=== PATIENT | male | born 1990 ===

== ENCOUNTER 2025-01-05 08:05 | Inpatient (IN) | payer MEDICAID, SELFPAY ==
[2025-01-05 08:09] VITALS: BP 190/117; PULSE 92; RESP 18; TEMP 36.8; O2SAT 97; BMI 30.7
--- NOTE | 2025-01-05 08:25 | ED_ITS ---
HPI - Psych General Chief Complaint: Psychiatric Symptoms Stated Complaint: detox Time Seen by Provider: 01/05/25 08:16 Source: patient Mode of arrival: ambulatory Limitations: no limitations History of Present Illness ED Provider: Shadia Sky NP HPI Narrative: Patient is a 34-year-old male who presents emergency department for evaluation. He is not very forthcoming surrounding his visit today. He answers some questions perfectly clearly with an understandable and appropriate answer, other questions such as in regards to his alcohol or substance use, past medical history, or any symptoms he may be experiencing he just shakes his head [id number] and says I do not know. He states he has not slept in about 3 days, ?I am hearing things? which he can not provide any further detail, reports that he drank a lot in the past , and I need something for my head . When asked whether he has a you suicidal or homicidal ideations he does not provide any answered. When asked whether he has drank today he is not answering, does not answer whether he uses any recreational drugs. Related Data Home Medications ?Medication ?Instructions ?Recorded ?Confirmed No Known Home Meds 01/06/25 01/06/25 Allergies Allergy/AdvReac Type Severity Reaction Status Date / Time No Known Allergies Allergy Verified 01/05/25 08:12 Review of Systems 2 Review of Systems: Yes all other systems are reviewed and are negative PMFSH Past Medical History [facility] Narrative: see HPI, patient not disclosing. Does not provide information for family alternative contact that is may be able to help provide past medical history for him Source: unable to obtain Social History Social History Household Members: Unknown / Unable to assess Housing: Unknown / Unable to assess Unable to assess alcohol history related to: Refusing to respond Patient Tobacco Use Status: Current everyday Tobacco user Tobacco use type: Smokeless Tobacco Smoked in Last 30 Days: Yes e-Cigarette/Vaping Use: Currently Using Frequency of e-Cigarette/Vaping Use: about a pod a day Patient Interested in Nicotine Replacement: Yes Patient Given Instructions on How to Stop Smoking: Yes Date Education Initiated: 01/07/25 Second Hand Smoke Exposure: No Use of substances other than those prescribed or required for medical reasons: Unknown Substance Use Type: Unknown Last Used Substance: Unknown Currently Displaying Signs/Symptoms of Drug Intoxication Withdrawal: No Advance Directives: No Advance Directives Information Provided: No Do you have a plan to hurt others: No Plan Recently lost weight without trying: Unsure Nutrition Risks: No Nutritional Risk Poor oral hygiene: No Physical Exam 2 Vital Signs: Vital Signs: Last Vital Signs Temp 98.6 F 01/07/25 08:30 Pulse 81 01/07/25 12:01 Resp 18 01/07/25 08:30 BP 164/111 H 01/07/25 13:21 Pulse Ox 100 01/07/25 08:30 O2 Del Method Room Air 01/07/25 08:30 BMI result Body Mass Index 30.7 Appearance: Alert.?Oriented to person. No acute distress.?Normal affect. Eyes: Pupils equal, round and reactive to light.? ENT: Pharynx normal.?? Neck: Normal inspection.? Neck supple.?? CVS: Heart sounds normal. Normal heart rate and rhythm.? Pulses normal.?? Respiratory: No respiratory distress.? Lung sounds clear to auscultation bilaterally?? Abdomen: Soft and non-tender. Normoactive bowel sounds. ? Skin: Skin warm and dry.? Normal skin color.? ?? Extremities: No lower extremity edema.? Neuro: Moves all extremities spontaneously. Sensation intact bilaterally. CN II- XII intact. No focal neuro deficits. Ambulates with normal steady gait. Course Reevaluation(s) Reevaluation #1: Serum labs and toxicology testing is unremarkable. Patient remains with somewhat bizarre affect. Still not answering very many questions. There is some degree of concern of recent alcohol usage, his see was down this time is to secondary to headache no other signs of withdrawal at this time. All care team given his endorsement of hearing thing is concerning for possible explanations. Patient will be monitored accordingly for any additional Time: 09:27 Reevaluation #2: Care team was able to evaluate patient has been placed on a section 12 for inpatient bed search. They were able to contact family to provide further uptake, evidently he has been using magic, shortness has been having thoughts killing himself, he is also dealing with paranoia and hallucinations. Evidently he is from the [place] area, here at this time but not homeless. Time: 13:59 Reevaluation #3: 01/06/2025; to continue physician observation, patient is section 12, bed search is underway. Time: 09:33 Additional Reevaluation(s): Time: 06:23 Date: 01/07/25 Provider: Braxton Austin MD Patient in physician observation for psychiatric evaluation.? Patient was been in the emergency department for 46 hours. No acute events reported overnight. Patient slept through the night. Patient was on a Section 12. No current complaints. VS did reveal an elevated blood pressure of 150/91, will continue to monitor his blood pressure.? Patient was re-evaluated by care team and is still in in-patient bed search. Will continue to monitor. Consultations Consultation #1: Time: 12:49 Date: 01/07/25 Provider: Braxton Austin MD Physician observation ended at 12:49 hours. The patient was been accepted as an inpatient on our psychiatric service for further treatment of his psychiatric illness. The patient was had elevated blood pressures since arrival here in the emergency department. Most recent blood pressure was 164/111. Patient told me that he did have high blood pressure and and has been off blood pressure medications for 4 years after he lost a significant amount of weight. He states that his blood pressures are usually normal. The patient denies any recent alcohol or cocaine use. He states that he has been agitated in his not been sleeping for 3-4 days. Patient has no concerning symptoms. Given his markedly elevated blood pressure I believe that the patient has a essential hypertension and I did discuss this with him. The patient told me that he does not want to take blood pressure medications but he is willing to take them while he was here in the hospital. I did have a discussion regarding treatment of hypertension especially the risks of stroke heart attack and kidney failure if he does not continue taking these medications as an outpatient. Patient became agitated by this discussion and did not want to talk about it further. The patient is not in hypertensive crisis or hypertensive urgency therefore he does not need rapid reduction of his blood pressure at this time. He did agree to start lisinopril 10 mg orally. I ordered lisinopril 10 mg orally now and 10 mg daily. Patient will need to continue on lisinopril 10 mg daily at the time of discharge and he will need to follow up with his primary care doctor in 2-4 weeks in order to continue managing his essential hypertension. Time: 18:44 Date: 01/07/25 Provider: Braxton Austin MD Physician observation ended at 13:28 hours. Patient to be admitted as inpatient to psychiatry. Medications Administered Generic Name Dose Route Start Last Admin Trade Name Freq PRN Reason Stop Dose Admin Nicotine Polacrilex 4 mg 01/05/25 20:08 01/07/25 08:11 Nicotine Polacrilex 2 Mg Gum BUCCAL 4 mg QID PRN Administration Nicotine Cravings Olanzapine 5 mg 01/07/25 12:10 01/07/25 14:31 Olanzapine 5 Mg Tablet PO 5 mg Q4H PRN Administration psychosis Discontinued Medications Generic Name Dose Route Start Last Admin Trade Name Freq PRN Reason Stop Dose Admin Ibuprofen 600 mg 01/05/25 08:37 01/05/25 09:28 Ibuprofen 600 Mg Tablet PO 01/05/25 08:38 600 mg ONCE ONE Administration Lisinopril 10 mg 01/07/25 12:56 01/07/25 13:21 Lisinopril 10 Mg Tablet PO 01/07/25 12:57 10 mg ONCE STA Administration Protocol Lorazepam 2 mg 01/05/25 20:08 01/05/25 20:14 Lorazepam 1 Mg Tablet PO 01/05/25 20:09 2 mg ONCE ONE Administration Lorazepam 2 mg 01/06/25 03:18 01/06/25 03:25 Lorazepam 1 Mg Tablet PO 01/06/25 03:19 2 mg ONCE ONE Administration Nicotine 21 mg 01/07/25 07:58 01/07/25 08:12 Nicotine 21 Mg Patch.Td24 TRANSDERMA 01/07/25 07:59 21 mg ONCE ONE Administration Olanzapine 10 mg 01/06/25 17:48 01/06/25 17:54 Olanzapine 10 Mg Tablet PO 01/06/25 17:49 10 mg ONCE ONE Administration Medical Decision Making Medical Decision Making [facility] Narrative: Patient is a 34-year-old male with unknown past medical history presenting to emergency department reporting ?hearing things? and not sleeping over the past 3 days. Seems there may be a component of alcohol use associated with these symptoms but again the history is unclear as per HPI he is not very forthcoming about any of his history nor why he has not been sleeping symptoms that he may be experiencing. He is calm otherwise cooperative with foreign exchange dealer, has provided a urinalysis thus far. Will obtain CBC to evaluate for leukocytosis/ anemia, CMP and lipase to evaluate for abnormal electrolytes /abnormal renal function/ abnormal hepatic/biliary function, TAMAYO and ethanol. Differential Diagnosis Differential Diagnoses: The differential diagnosis associated with the presentation includes (Substance use disorder, insomnia, auditory hallucinations, schizophrenia) Admission/Observation Consideration of admission/observation: Escalation of care including admission/observation considered Consult Healthcare Provider Management of the patient was discussed with: Behavioral Health Provider Lab Data MDM Lab Attestation statement: I reviewed the patient's lab results. CBC is without leukocytosis anemia or thrombocytopenia. No electrolyte derangement. No ISELA. Normal LFTs. Toxicology is negative. Ethyl alcohol level nondetectable 01/05/25 08:47 01/05/25 08:47 Labs: Lab Results 01/05/25 01/05/25 Range/Units 08:44 08:47 WBC 9.4 (4.8-10.8) X10*3/uL RBC 4.95 (4.60-5.80) X10*6/uL Hgb 14.6 (14.0-18.0) g/dl Hct 42.7 (42.0-52.0) % MCV 86.3 (80.0-98.0) fL MCH 29.5 (27.0-33.0) pg MCHC 34.2 (31.0-36.0) g/dl RDW 11.7 (11.0-16.0) % Plt Count 289 (160-400) X10*3/uL MPV 9.8 (9.4-12.4) fL Immature Gran % (Auto) 0.4 (0.0-0.4) % Neut % (Auto) 50.3 (45-73) % Lymph % (Auto) 39.2 (20-40) % [place] % (Auto) 8.4 (2-11) % Eos % (Auto) 1.2 (0-4) % Baso % (Auto) 0.5 (0-2) % Lymph # (Auto) 3.7 (1.2-4.9) X10*3/uL [place] # (Auto) 0.8 (0.1-1.2) X10*3/uL Eos # (Auto) 0.1 (0.0-0.4) X10*3/uL Baso # (Auto) 0.1 (0.0-0.2) X10*3/uL Abs Immat Gran (auto) 0.04 H (0.00-0.03) X10*3/uL Absolute Neuts (auto) 4.8 (2.0-8.3) x10*3/uL Absolute Nucleated RBC 0.000 (0.0-0.012) X10*3/uL Nucleated RBC % (auto) 0.0 (0.0-0.2) /100WBC Sodium 137 (135-145) mmol/L Potassium 3.4 (3.3-5.1) mmol/L Chloride 102 (96-108) mmol/L Carbon Dioxide 25 (22-29) mmol/L Anion Gap 13 (12-20) BUN 11 (9-16) mg/dL Creatinine 0.75 (0.5-1.4) mg/dL Estim Creat Clear Calc 158.8 Estimated GFR > 60 Random Glucose 98 (60-115) mg/dL Calcium 9.1 (8.4-10.2) mg/dL Magnesium 2.3 (1.6-2.6) mg/dL Total Bilirubin 0.6 (0.0-1.0) mg/dL Direct Bilirubin 0.2 (0.0-0.5) mg/dL AST 19 (5-37) U/L ALT 29 (0-40) U/L Alkaline Phosphatase 44 (39-117) U/L Total Protein 7.1 (6.5-8.0) g/dL Albumin 4.8 (3.5-5.0) g/dL Urine Color Yellow Urine Appearance Cloudy Urine pH >= 9.0 (5.0-9.0) Ur Specific [place] 1.010 (1.005-1.025) Urine Protein Negative (Neg-Trace) mg/dL Urine Glucose (UA) Negative (Negative) mg/dL Urine Ketones 15 (Negative) mg/dL Urine Blood Negative (Negative) Urine Nitrite Negative (Negative) Ur Leukocyte Esterase Negative (Negative) Salicylates < 5.0 L (15-30) mg/dL Urine Opiates Screen Not Detected (Not Detect) Ur Buprenorphine Scrn Not Detected (Not Detect) ng/mL Ur Oxycodone Screen Not Detected (Not Detect) ng/mL Urine Methadone Screen Not Detected (Not Detect) ng/mL Urine Fentanyl Screen Not Detected (Not Detect) Acetaminophen < 3 (<30) mcg/mL Ur Barbiturates Screen Not Detected (Not Detect) Ur Phencyclidine Scrn Not Detected (Not Detect) Ur Amphetamines Screen Not Detected (Not Detect) U Benzodiazepines Scrn Not Detected (Not Detect) Urine Cocaine Screen Not Detected (Not Detect) U Marijuana (THC) Screen Not Detected (Not Detect) Ethyl Alcohol < 10 mg/dL Discharge Plan Discharge Clinical Impression: Paranoid ideation, Mood disorder, Insomnia Patient Disposition: Admitted As Inpatient Interventions: Admission Worksheet (ED) Last Done: 01/07/25 13:31 Discharge Date/Time: 01/07/25 13:33
[2025-01-05 08:50] VITALS: BP 166/115; PULSE 86; RESP 20; TEMP 36.7; O2SAT 94
[2025-01-05 08:52] LABS: MANUAL DIFF FLAG NO
--- NOTE | 2025-01-05 08:53 | PC.NURSE ---
Pt comes in for ?ETOH/?substance use. Pt a/ox3, refusing to respond to questions, slow to speak with staff, agitated/frustrated easily. Per pt last drink 11 days ago- unknown if daily drinker/type of drink d/t pt not responding to questions. Denies ETOH withdrawal seizures, but had withdrawals before. Denies SI/HI- stated to this RN he is not experiencing auditory/visual hallucinations, pt told solder deposit operator he was experiencing AH- does not seem to be responding to internal stimuli. Pt changed over by RN and pharmacy technologist Gilberto d/t increasing agitation/frustration and possible danger to self/staff- belongings placed in jordon port shelf 2. A/ox3, respirations even and unlabored, no increased wob/sob noted, maintaining O2 sat >92%, placed on monitoring coordinator, NSR HR- 80s, appears in no distress. Vitals updated in worklist, BP 160s/100s- pt denies having high BP/taking BP medications, HOT CAR CHARGER Miah aware of BP. Pt in agreement with labs/urine sample- this RN explained the process of getting medically cleared then seeing CARE team or recovery. Pt ignoring staff questions/showing increased agitation with questions being asked. CIWA scored 0- appears in no distress, HR nsr, skin pwd- not diaphoretic, denies auditory/visual sensory disturbances. Call das within reach, all needs met at this time.
[2025-01-05 08:55] LABS: Basophils Absolute Auto 0.1 X10*3/uL (0.0-0.2); Basophils Percent Auto 0.5 % (0-2); Eosinophils Absolute Auto 0.1 X10*3/uL (0.0-0.4); Eosinophils Percent Auto 1.2 % (0-4); Hematocrit 42.7 % (42.0-52.0); Hemoglobin 14.6 g/dl (14.0-18.0); Imm Gran Abs Auto 0.04 X10*3/uL (0.00-0.03); Imm Gran Pct Auto 0.4 % (0.0-0.4); Lymphocytes Absolute Auto 3.7 X10*3/uL (1.2-4.9); Lymphocytes Percent Auto 39.2 % (20-40); Mean Corpuscular HGB Conc 34.2 g/dl (31.0-36.0); Mean Corpuscular Hemoglobin 29.5 pg (27.0-33.0); Mean Corpuscular Volume 86.3 fL (80.0-98.0); Mean Platelet Volume 9.8 fL (9.4-12.4); Monocytes Absolute Auto 0.8 X10*3/uL (0.1-1.2); Monocytes Percent Auto 8.4 % (2-11); Neutrophils Absolute Auto 4.8 x10*3/uL (2.0-8.3); Neutrophils Percent Auto 50.3 % (45-73); Platelet Count 289 X10*3/uL (160-400); Red Blood Count 4.95 X10*6/uL (4.60-5.80); Red Cell Distribution Width 11.7 % (11.0-16.0); White Blood Count 9.4 X10*3/uL (4.8-10.8)
[2025-01-05 09:06] LABS: Appearance Urine Cloudy; Color Urine Yellow; Glucose Urine UA Negative (Negative); Leukocyte Esterase Urine Negative (Negative); Nitrite Urine Negative (Negative); PH >= 9.0 (5.0-9.0); Urine Blood Negative (Negative); Urine Ketones 15 mg/dL (Negative); Urine Protein Negative (Neg-Trace)
[2025-01-05 09:08] LABS: Amphetamine Screen Urine Not Detected (Not Detect); Barbiturates, Urine Not Detected (Not Detect); Benzodiazepines Screen Urine Not Detected (Not Detect); Buprenorphine Scr Not Detected (Not Detect); Cannabinoid Screen Urine Not Detected (Not Detect); Cocaine Screen Urine Not Detected (Not Detect); Fentanyl, urine Not Detected (Not Detect); Methadone Screen, Urine Not Detected (Not Detect); Opiate Screen Urine Not Detected (Not Detect); Oxycodone Screen Urine Not Detected (Not Detect); Phencyclidine Screen Urine Not Detected (Not Detect)
[2025-01-05 09:16] LABS: Alanine Aminotransferase 29 U/L (0-40); Albumin Level 4.8 g/dL (3.5-5.0); Alkaline Phosphatase 44 U/L (39-117); Anion Gap 13 (12-20); Aspartate Amino Transferase 19 U/L (5-37); Bilirubin Direct 0.2 mg/dL (0.0-0.5); Bilirubin Total 0.6 mg/dL (0.0-1.0); Blood Urea Nitrogen 11 mg/dL (9-16); Calcium 9.1 mg/dL (8.4-10.2); Carbon Dioxide 25 mmol/L (22-29); Chloride 102 mmol/L (96-108); Creatinine Clr Calc Pharmacy 158.8; Estimated Glomerular Filt Rate > 60; Glucose Random 98 mg/dL (60-115); Magnesium 2.3 mg/dL (1.6-2.6); Potassium 3.4 mmol/L (3.3-5.1); Sodium 137 mmol/L (135-145); Total Protein 7.1 g/dL (6.5-8.0)
[2025-01-05 09:21] LABS: Acetaminophen LAB < 3 mcg/mL (<30); Ethanol < 10 mg/dL; Salicylate < 5.0 mg/dL (15-30)
[2025-01-05] MEDS: Ibuprofen 600 MG TABLET PO (09:28)
--- NOTE | 2025-01-05 10:59 | PC.NURSE ---
Care Team at the bedside to provide a consult.
[2025-01-05 11:18] VITALS: BP 156/93; PULSE 88; RESP 14; O2SAT 97
--- NOTE | 2025-01-05 11:48 | PC.NURSE ---
Patient wandering down the jara. Public safety aware. Per care team, requesting psychiatrist to evaluate as patient is unable to communicate his needs at this time. Patient transferred to the pod for decreae stimulation and a quieter environment. Report given.
--- NOTE | 2025-01-05 13:11 | PC.NURSE ---
Pt resting in room; faces away from staff speaking to him; refuses to answer questions, stating he just wants to sleep and be left alone
--- NOTE | 2025-01-05 14:17 | PC.NURSE ---
Pt's mother called to update pt information, i.e. address, phone number, etc; pt still remains uninvolved in care, refusing to speak with anyone; pt did eat lunch, but is otherwise not able to participate in his care at this time
--- NOTE | 2025-01-05 14:36 | PC.NURSE ---
Pt does not participate in the CIWA assessment..unable to properly evaluate CIWA level
[2025-01-05 20:11] VITALS: BP 180/96; PULSE 81; RESP 18; TEMP 36.9; O2SAT 98
[2025-01-05] MEDS: LORazepam 1 MG TABLET 2 MG PO (20:14)
[2025-01-05] MEDS: Nicotine Polacrilex 2 MG GUM 4 MG BUCCAL (20:16)
--- NOTE | 2025-01-06 00:31 | PC.NURSE ---
patient appears to remain at rest presently was cooperative with receiving ativan earlier and nicotine gum, patient allowed to rest.
[2025-01-06] MEDS: Nicotine Polacrilex 2 MG GUM 4 MG BUCCAL ×3 (02:38→08:06)
[2025-01-06] MEDS: LORazepam 1 MG TABLET 2 MG PO (03:25)
--- NOTE | 2025-01-06 08:07 | PC.NURSE ---
Pt has been pacing since this RN arrival. Security reviewed cameras and states that patient was up all night. Pt requesting nicorette gum but declining offer for anything to help calm him or help him to sleep. Is not agitated or agressive at this time.
[2025-01-06 08:37] VITALS: PULSE 100; RESP 18; TEMP 37.1; O2SAT 97
--- NOTE | 2025-01-06 08:47 | PHA.MEDREC ---
Pharmacy Consult ? Medication Reconciliation Pharmacy has completed the medication reconciliation. Patient confirmed he takes nothing at home.
--- NOTE | 2025-01-06 09:19 | MHC.CARE ---
Ptr will be be an inpatient bedsearch.
--- NOTE | 2025-01-06 10:17 | PC.NURSE ---
update with Mom, Laura, on phone.
--- NOTE | 2025-01-06 10:20 | PC.NURSE ---
Pt resting in bed.
--- NOTE | 2025-01-06 10:33 | PC.NURSE ---
Sharifa on phone and stating that they will attempt to get psychiatry to consult on meds as patient is waiting for placement.
--- NOTE | 2025-01-06 10:34 | PC.NURSE ---
columbia scale completed but software makes it impossible to chart accurately. Pt is unable to hold conversation regarding SI.
[2025-01-06 15:34] VITALS: BP 150/91; PULSE 84; RESP 18; TEMP 36.4; O2SAT 99
[2025-01-06] MEDS: OLANZapine 10 MG TABLET PO (17:54)
--- NOTE | 2025-01-07 | ECG_ITS ---
Test Reason : cropana Blood Pressure : */* mmHG Vent. Rate : 95 BPM Atrial Rate : 95 BPM P-R Int : 110 ms QRS Dur : 104 ms QT Int : 342 ms P-R-T Axes : 20 36 29 degrees QTcB Int : 429 ms Sinus rhythm with short [place] Otherwise normal ECG No previous ECGs available Referred By: Braxton Austin Electronically Signed By: Nicanor Capellan
[2025-01-07] MEDS: Nicotine Polacrilex 2 MG GUM 4 MG BUCCAL ×2 (02:24→08:11)
[2025-01-07 06:10] VITALS: RESP 16
--- NOTE | 2025-01-07 06:14 | PC.NURSE ---
Patient slept through the night, no distress observed/reported, 15 minutes safety check, no behavior and safety concerns, patient is currently not on any home medication, disposition per care team is section-12 inpatient bed search, will continue to monitor
--- NOTE | 2025-01-07 07:16 | PC.NURSE ---
Assumed pt care at 0645. Pt appears to be asleep. Respirations even and unlabored. Continue plan of care for inpatient bed search.
[2025-01-07] MEDS: Nicotine 21 MG PATCH.TD24 TRANSDERMA (08:12)
[2025-01-07 08:30] VITALS: BP 157/110; PULSE 99; RESP 18; TEMP 37; O2SAT 100
[2025-01-07 12:01] VITALS: BP 164/111; PULSE 81
--- NOTE | 2025-01-07 12:03 | PC.NURSE ---
Pt has elevated BP. Indu Rodriguezo. No new orders at this time
[2025-01-07 13:21] VITALS: BP 164/111
[2025-01-07] MEDS: lisinopriL 10 MG TABLET PO (13:21)
[2025-01-07] MEDS: OLANZapine 5 MG TABLET PO (14:31)
--- NOTE | 2025-01-07 17:33 | PC.ADMIT ---
Bob Anthony is a 34 year old male admitted to M5 from [facility]. Bob arrived to the unit at @13:30, skin check was unremarkable. Bob is alert and oriented x4, speech is clear but slightly delayed in responding to questions. Bob was initially cooperative with vitals and preliminary admission information but soon became agitated and irritable with admission questions.His main concern was the [place] rental car that he reportedly drove to the ED and how it would be returned. Bob denied substance use other than vaping nicotine daily and tox screen was negative however family reports differently regarding substance use. 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 After sharing this information, he became to agitated to continue with assessment questions. Per Assessment Bob self presented to [facility] with complaints of persistent internal chatter or voices, which he was unable to clearly describe. Initially, he reported being homeless and residing in [place]. However, further investigation revealed a previous residence in [place], [place]. A call to the [place] [employer] prompted a well-being check, resulting in contact with the patient?s family. His family subsequently reached out to the care team and provided pertinent information regarding both his current mental state and psychiatric history. Family noted that he was? currently expressing thoughts of self-harm, raising significant concerns for his safety and mental stability. Per family precipitating factors include the end of a significant romantic relationship triggering increased emotional distress, leading to a noticeable escalation in alcohol use as a coping mechanism. Concurrently, his unregulated use of magic mushrooms (which he denied during admission) has exacerbated symptoms of paranoia and perceptual disturbances, further impairing his reality testing and emotional regulation. Three days of sleep deprivation has likely intensified his psychiatric symptoms.? Per his mother, Bob has been demonstrating ongoing paranoia and hallucinations. He believes that others are out to kill him or telling him to kill himself, he also believes that he is on a no fly list per the government. These acute stressors, layered on top of longstanding vulnerabilities such as low self-esteem, past trauma from childhood bullying, and a history of suicidality have contributed to his current mental health crisis. Bob was given a brief tour of the unit, placed on 5 minute checks out of concern for his level of agitation at the time and being unfamiliar with him. He was offered and accepted zyprexa and nicotine gum, showered, signed a CV and fell asleep. Bob was switched back to 15 minute checks at 17:00.?Bob refused to sign releases or take part in formation of safety tool or treatment plan. Per report of POD RN, his parents are driving up from [place] to assist him.
[2025-01-07 20:00] VITALS: BP 120/73; PULSE 87; RESP 16; TEMP 36.6; O2SAT 99
[2025-01-07] MEDS: OLANZapine 10 MG TABLET PO (21:13)
[2025-01-08 07:57] VITALS: BP 146/89; PULSE 82; RESP 18; TEMP 36.5; O2SAT 100
[2025-01-08] MEDS: Multivitamin TABLET 1 TAB PO (08:29)
[2025-01-08] MEDS: Folic Acid 1 MG TABLET PO (08:29)
[2025-01-08] MEDS: lisinopriL 10 MG TABLET PO (08:30)
[2025-01-08] MEDS: Thiamine HCL 100 MG TABLET PO (08:30)
[2025-01-08] MEDS: OLANZapine 10 MG TABLET PO (08:30)
[2025-01-08 09:04] LABS: Estimated Average Glucose 103 mg/dL; Hemoglobin A1C 134.0523 umol/L; Hemoglobin A1c % 5.2 % (<6.0); Total Hemoglobin (HGBA1C) 4054.3582 umol/L
[2025-01-08] MEDS: Nicotine Polacrilex 2 MG GUM 4 MG BUCCAL ×2 (09:08→20:31)
[2025-01-08 09:09] LABS: Cholesterol 263 mg/dL (<200); HDL Cholesterol 40 mg/dL (>40); LDL Cholesterol Calculated 199 mg/dL (<100); Magnesium 2.2 mg/dL (1.6-2.6); Triglycerides 123 mg/dL (<150)
[2025-01-08 09:26] LABS: Free T4 (Free Thyroxine) 1.21 ng/dL (0.71-1.85)
--- NOTE | 2025-01-08 09:29 | P.HPPS_ITS ---
HPI Date of Service: 01/08/25 Chief Complaint: PTSD; psychosis, alcohol use disorder Sources of Information: patient interviewed, chart reviewed and crisis/core team assessment reviewed Additional Sources of Information: Seen 1120am; 120pm-fearful, paranoid, did his best to participate Parents are on their way from [place] to support pt. HPI Subjective Notes: Lemus Warning and Conditional Voluntary Healthcare Proxy: No Guardianship: No Medical Problems Affecting Mental Status: No Narrative: 34 yo male, employed as a [employer], who self presented to the ER telling team of persistent internal voices. Pt lives in [place], [place] with parents. He had been working in [place], was set to drive to [place] to fly home to [place], but drove around and ended up in the ER, telling team he was homeless and had told family he was having thoughts of hurting himself. Family reports precipitants as the ending of a relationship, increase in alcohol use, use of psilocybin which have increased sx of paranoia and perceptual alterations, sleep deprivation, impaired reality testing, poor modulation of affect. Pt tells team he is experiencing paranoia, perceptual alterations, feeling people are out to kill him, voices to kill himself, being told he is on a no fly list with the [employer]. Pt is difficult to engage today. We met briefly twice. He is aware that parents are on their way from [place] to support him. He is accepting medication, yet is appearing frightened and paranoid. He is able to accept reassurance that the team is here to help him remain safe. Past Psychiatric History: IP: S/P OD in his 20's OP: No current alliances Meds: Denies SA via OD in his 20's. Medical Evaluation Reviewed: Yes [facility] Family History: pt did not answer Social History: Loss of father when he was 9 months old. Two siblings Lives with mother and step father in [place] Substance History: psilocybin use, hx of OD a few months ago Trauma History: affirms-childhood and adult Diagnostics Vital Signs (24Hr): Vital Signs - 24 hr 01/07/25 12:01 01/07/25 13:21 01/07/25 20:00 Temperature 97.8 F Pulse Rate 81 87 Respiratory Rate 16 Blood Pressure 164/111 H 164/111 H 120/73 Pulse Oximetry 99 Oxygen Delivery Method Room Air 01/08/25 07:57 Temperature 97.7 F Pulse Rate 82 Respiratory Rate 18 Blood Pressure 146/89 H Pulse Oximetry 100 Oxygen Delivery Method Room Air BMI result Body Mass Index 30.7 Labs 01/05/25 08:47 01/05/25 08:47 Labs: Laboratory Results - last 48 hr 01/08/25 08:29 Estimat Average Glucose 103 Hemoglobin A1c % 5.2 Magnesium 2.2 Triglycerides 123 Cholesterol 263 H LDL Cholesterol, Calc 199 H HDL Cholesterol 40 L TSH 0.50 Free T4 1.21 EKG EKG Comment: QTc 429. Meds/Allergies Meds Home Medications ?Medication ?Instructions ?Recorded ?Confirmed ?Type No Known Home Meds 01/06/25 01/06/25 History Allergies Allergies Allergy/AdvReac Type Severity Reaction Status Date / Time No Known Allergies Allergy Verified 01/05/25 08:12 Mental Status Exam Mental Status Exam Patient Appearance: Fatigued and Disheveled Patient Orientation: Person and Place Level of Consciousness: Sedated and Alert Patient Behavior: Guarded, Talkative, Passive, Suspicious, Anxious, Sedated, Fearful, Avoidant, Fatigued, Distractible, Isolative and Good Eye Contact Mood Description: Fearful and Anxious Affect Description: Fearful and Anxious Patient Cognition Impaired: Yes Ability to Follow Directions: Fair Speech Pattern: Impoverished, Spontaneous Speech, Soft-Spoken, Delayed and Long Pauses Memory Description: Remote Impaired Hallucinations: Auditory (appears to have response to internal stimuli) Delusions: Paranoid Ideation and Present Perceptual Disturbances: Depersonalization and Derealization Thought Process: Distracted and Rumination Thought Content: positive for Circumstantial, positive for Perseveration and positive for Suicidal Ideation (denies) Depressive Symptoms: Increased Anxiety, Insomnia, Difficulty Sleeping, Loss of Int. in Activity, Increased Fatigue, Thoughts of /Suicide, Loss of Energy and Difficulty Concentrating Judgement: Poor Assessment & Plan Assessment & Plan (1) Psychoactive substance-induced mood disorder: Status: Acute Code(s): F19.94 - Other psychoactive substance use, unspecified with psychoactive substance-induced mood disorder (2) Psychosis: Status: Acute Code(s): F29 - Unspecified psychosis not due to a substance or known physiological condition Plan Admit, CV, 15 minute checks Diagnostics as needed Collateral Contacts Encourage milieu when pt is cleared CIWA/Lorazepam detox/Vitamin replacement Increase Olanzapine from 10 mg bid to 15 mg bid Continue prn Olanzapine Patient educated on: medication risk/benefits, substance abuse, therapeutic strategies and medical condition Reason for continued inpatient stay Substantial Risk for: rapid decompensation Statement Statement: I have reviewed the history and physical and performed a pertinent examination on my patient. No changes have occurred unless specified. If the History and Physical was not performed prior to admission, the Hospitalist's service will be consulted for completing the admission physical. Time Spent With Patient Time: Total time managing care of this patient today ____ minutes.
[2025-01-08 09:39] LABS: Folate 14.9 ng/mL (> or = 4.0); Vitamin B12 1272 pg/mL (200-900)
[2025-01-08 20:00] VITALS: BP 109/59; PULSE 89; TEMP 36.4; O2SAT 98
[2025-01-08] MEDS: OLANZapine 7.5 MG TABLET 15 MG PO (21:38)
[2025-01-09] MEDS: Nicotine Polacrilex 2 MG GUM 4 MG BUCCAL ×3 (07:04→13:47)
[2025-01-09 08:00] VITALS: BP 131/83; PULSE 85; RESP 18; TEMP 36.7; O2SAT 99
[2025-01-09] MEDS: Thiamine HCL 100 MG TABLET PO (08:13)
[2025-01-09] MEDS: Folic Acid 1 MG TABLET PO (08:13)
[2025-01-09] MEDS: lisinopriL 10 MG TABLET PO (08:13)
[2025-01-09] MEDS: OLANZapine 7.5 MG TABLET 15 MG PO ×2 (08:14→20:02)
[2025-01-09] MEDS: Multivitamin TABLET 1 TAB PO (08:14)
--- NOTE | 2025-01-09 10:03 | P.PNPSI_ITS ---
Subjective Subjective Date of Service: 01/09/25 Reason For Visit: PTSD; psychosis, alcohol use disorder Subjective Notes: Conditional Voluntary and 3 Day Healthcare Proxy: No Guardianship: No Medical Problems Affecting Mental Status: No Interim History: Parents arrived from [place]. Met with team, pt, parents. Talked with mother Laura via phone [phone]. Pt reviewed his plans to stop substances and pursue treatment once he returns home. By hx, pt was sober for one year post rehab-he adds that he felt his ex- girlfriends helped to keep him on track. Pt reviewed sx and substance use [employer]- alcohol 12/24, mushrooms Aug 2024-voices that were accusatory, telling him to harm himself in the grocery store. Pt reports feeling ready to leave, stating he came here, got what he needed and is ready to move. Discussed what he needs to do, in pt care making it worse for him. He reports confidence in himself and his capabilities. Believes he cannot drink any longer, will cope by regular gym workouts and connections with friends. AA not a support for him-hearing others experience causes anxiety and cannot talk about the horrors of life . Will initiate antidepressant and send a 30 day supply with pt via [facility] pharmacy Medication Compliance: Yes Side effects from medications: No Attending Groups: No Review of Systems Acute medical concerns: No Medical Review of Systems: unchanged Review of Systems Review of Systems Denies Mental Status Exam Mental Status Exam Patient Appearance: Appropriate Patient Orientation: Person, Place, Time and Situation Level of Consciousness: Alert Patient Behavior: Talkative and Good Eye Contact Mood Description: Appropriate and Hostile Affect Description: Appropriate Patient Cognition Impaired: No Ability to Follow Directions: Good Speech Pattern: Spontaneous Speech Memory Description: Episodic Impaired Hallucinations: Auditory (mild at times) Delusions: Not Present Thought Process: Goal Oriented Thought Content: positive for Goal Oriented Judgement: Good Diagnostics Vital Signs (24Hr): Vital Signs - 24 hr 01/08/25 20:00 01/09/25 08:00 Temperature 97.5 F 98.1 F Pulse Rate 89 85 Respiratory Rate 18 Blood Pressure 109/59 L 131/83 Pulse Oximetry 98 99 Oxygen Delivery Method Room Air Room Air BMI result Body Mass Index 30.7 Labs 01/05/25 08:47 01/05/25 08:47 Labs: Laboratory Results - last 48 hr 01/08/25 08:29 Estimat Average Glucose 103 Hemoglobin A1c % 5.2 Magnesium 2.2 Triglycerides 123 Cholesterol 263 H LDL Cholesterol, Calc 199 H HDL Cholesterol 40 L Vitamin B12 1272 H Folate 14.9 TSH 0.50 Free T4 1.21 Medications Medications Current Medications Acetaminophen (Acetaminophen 325 Mg Tablet) 650 mg PO Q6H PRN PRN Reason: Headache/Pain, Scale 1-10 Al Hydroxide/Mg Hydroxide (Magnesium Hydrox/Alum Hydrox 30 Ml Oral.Susp) 30 ml PO Q6H PRN PRN Reason: Heartburn/Nausea Folic Acid (Folic Acid 1 Mg Tablet) 1 mg PO DAILY [facility] Last Admin: 01/09/25 08:13 Dose: 1 mg Hydroxyzine HCl (Hydroxyzine Hcl 25 Mg Tablet) 25 mg PO Q6H PRN PRN Reason: mild anxiety Lisinopril (Lisinopril 10 Mg Tablet) 10 mg PO DAILY [facility]; Protocol Last Admin: 01/09/25 08:13 Dose: 10 mg Lorazepam (Lorazepam 1 Mg Tablet) 1 mg PO Q2H PRN PRN Reason: ciwa 6-10 Lorazepam (Lorazepam 1 Mg Tablet) 2 mg PO Q2H PRN PRN Reason: ciwa 11+ Magnesium Hydroxide (Milk Of Magnesia 30 Ml Oral.Susp) 30 ml PO DAILY PRN PRN Reason: Constipation Multivitamins/Vitamin C (Multivitamin Tablet) 1 tab PO DAILY [facility] Last Admin: 01/09/25 08:14 Dose: 1 tab Nicotine Polacrilex (Nicotine Polacrilex 2 Mg Gum) 4 mg BUCCAL Q2H PRN PRN Reason: Nicotine Cravings Last Admin: 01/09/25 07:04 Dose: 4 mg Olanzapine (Olanzapine 5 Mg Tablet) 5 mg PO Q4H PRN PRN Reason: psychosis Last Admin: 01/07/25 14:31 Dose: 5 mg Olanzapine (Olanzapine 7.5 Mg Tablet) 15 mg PO BID [facility] Last Admin: 01/09/25 08:14 Dose: 15 mg Thiamine HCl (Thiamine Hcl 100 Mg Tablet) 100 mg PO DAILY [facility] Last Admin: 01/09/25 08:13 Dose: 100 mg Trazodone HCl (Trazodone Hcl 50 Mg Tablet) 50 mg PO BEDTIME MRX1 PRN PRN Reason: Insomnia Allergies Allergies Allergy/AdvReac Type Severity Reaction Status Date / Time No Known Allergies Allergy Verified 01/05/25 08:12 Assessment & Plan Assessment & Plan (1) Psychoactive substance-induced mood disorder: Status: Acute Code(s): F19.94 - Other psychoactive substance use, unspecified with psychoactive substance-induced mood disorder (2) Psychosis: Status: Acute Code(s): F29 - Unspecified psychosis not due to a substance or known physiological condition Plan Admit, CV, 15 minute checks Diagnostics as needed Collateral Contacts Encourage milieu when pt is cleared CIWA/Lorazepam detox/Vitamin replacement Increase Olanzapine from 10 mg bid to 15 mg bid Continue prn Olanzapine 01/09- Sertraline 25 mg a.m. Discharge with parents 01/10. Pt to return to his home with parents in [place] Reason for continued inpatient stay Substantial Risk for: rapid decompensation Time Spent With Patient Time: Total time managing care of this patient today ____ minutes.
[2025-01-09] MEDS: hydrOXYzine HCL 25 MG TABLET PO (13:48)
[2025-01-09 19:20] VITALS: BP 158/90; PULSE 89; TEMP 36.4; O2SAT 99
[2025-01-09] MEDS: traZODone HCL 50 MG TABLET PO (20:02)
[2025-01-10] MEDS: Nicotine Polacrilex 2 MG GUM 4 MG BUCCAL (06:25)
[2025-01-10 08:00] VITALS: BP 131/81; PULSE 86; RESP 16; TEMP 36.8; O2SAT 99
[2025-01-10] MEDS: Multivitamin TABLET 1 TAB PO (08:08)
[2025-01-10] MEDS: lisinopriL 10 MG TABLET PO (08:08)
[2025-01-10] MEDS: OLANZapine 7.5 MG TABLET 15 MG PO (08:08)
[2025-01-10] MEDS: Thiamine HCL 100 MG TABLET PO (08:08)
[2025-01-10] MEDS: Folic Acid 1 MG TABLET PO (08:08)
[2025-01-10] MEDS: Sertraline HCL 25 MG TABLET PO (08:08)
--- NOTE | 2025-01-10 10:20 | P.DS_ITS ---
DS: Providers Provider Date of admission: 01/07/25 12:07 Primary care physician: None Physician DS: Diagnosis Discharge Diagnosis (1) Psychoactive substance-induced mood disorder: Status: Acute (2) Psychosis: Status: Acute DS: Medications Discharge Medications Home Medications: Previous Rx's ?Medication ?Instructions ?Recorded folic acid 1 mg tablet 1 mg PO DAILY #0 tabs 01/09/25 multivitamin (Daily-Say tablet) 1 tab PO DAILY #0 tabs 01/09/25 olanzapine 15 mg tablet (Zyprexa) 15 mg PO BID #60 tabs 01/09/25 sertraline 25 mg tablet 25 mg PO DAILY #30 tabs 01/09/25 thiamine mononitrate (vit B1) 100 100 mg PO DAILY #0 tabs 01/09/25 mg tablet Data Data Completed and Pending Completed studies during hospitalization [Text1]: 01/05/25 01/05/25 01/08/25 08:44 08:47 08:29 WBC 9.4 RBC 4.95 Hgb 14.6 Hct 42.7 MCV 86.3 MCH 29.5 MCHC 34.2 RDW 11.7 Plt Count 289 MPV 9.8 Immature Gran % (Auto) 0.4 Neut % (Auto) 50.3 Lymph % (Auto) 39.2 [place] % (Auto) 8.4 Eos % (Auto) 1.2 Baso % (Auto) 0.5 Lymph # (Auto) 3.7 [place] # (Auto) 0.8 Eos # (Auto) 0.1 Baso # (Auto) 0.1 Abs Immat Gran (auto) 0.04 H Absolute Neuts (auto) 4.8 Absolute Nucleated RBC 0.000 Nucleated RBC % (auto) 0.0 Sodium 137 Potassium 3.4 Chloride 102 Carbon Dioxide 25 Anion Gap 13 BUN 11 Creatinine 0.75 Estim Creat Clear Calc 158.8 Estimated GFR > 60 Random Glucose 98 Estimat Average Glucose 103 Hemoglobin A1c % 5.2 Calcium 9.1 Magnesium 2.3 2.2 Total Bilirubin 0.6 Direct Bilirubin 0.2 AST 19 ALT 29 Alkaline Phosphatase 44 Total Protein 7.1 Albumin 4.8 Triglycerides 123 Cholesterol 263 H LDL Cholesterol, Calc 199 H HDL Cholesterol 40 L Vitamin B12 1272 H Folate 14.9 TSH 0.50 Free T4 1.21 Urine Color Yellow Urine Appearance Cloudy Urine pH >= 9.0 Ur Specific [place] 1.010 Urine Protein Negative Urine Glucose (UA) Negative Urine Ketones 15 Urine Blood Negative Urine Nitrite Negative Ur Leukocyte Esterase Negative Salicylates < 5.0 L Urine Opiates Screen Not Detected Ur Buprenorphine Scrn Not Detected Ur Oxycodone Screen Not Detected Urine Methadone Screen Not Detected Urine Fentanyl Screen Not Detected Acetaminophen < 3 Ur Barbiturates Screen Not Detected Ur Phencyclidine Scrn Not Detected Ur Amphetamines Screen Not Detected U Benzodiazepines Scrn Not Detected Urine Cocaine Screen Not Detected U Marijuana (THC) Screen Not Detected Ethyl Alcohol < 10 DS: Summary Time Spent with Patient Time attestation: Total time managing care of this patient today ____ minutes. Discharge Plan Discharge Anticipated Discharge Date/Time: 01/10/25 10:30 Patient Disposition: Home, Self-Care Discharge Diagnosis: Psychosis Alcohol Use Disorder Referrals: [facility] [Other] - 1 Week (Give them a call for psychiatry and therapy appointments. They also offer addiction support. Below is a brief description of their services. The [facility] and [facility] are designed for patients suffering from psychiatric and substance use disorder illnesses. Call [phone] for an appointment. We treat all patients regardless of ability to pay. ) [facility] [Other] - 1 Week (They offer medication management and therapy services. ) Physician,None [Primary Care Provider] - 1 Week Discharge Medications: New multivitamin [Daily-Say] Tablet 1 tab PO DAILY Qty: 0 0RF folic acid 1 mg Tablet 1 mg PO DAILY Qty: 0 0RF thiamine mononitrate (vit B1) 100 mg Tablet 100 mg PO DAILY Qty: 0 0RF sertraline 25 mg tablet 25 mg PO DAILY Qty: 30 0RF olanzapine [Zyprexa] 15 mg tablet 15 mg PO BID Qty: 60 0RF Discharge Orders: Discharge Order (Routine); Ordered 01/10/25 Ordered By: Keshia Mejía Diet: Advance to usual diet Activity on Discharge: As tolerated Stand Alone Forms: Patient Portal Discharge page, Community Support Print Language: Unable To Collect Care Plan Goals: Mood and Behavioral Stabilization Clarity of Thought Process Abstinence from Alcohol/Substances Health Concerns: Mood and Behavioral Stabilization Clarity of Thought Process Abstinence from Alcohol/Substances Plan of Treatment: Pt will travel to his home in [place] with parents. He will make treatment choices when he arrives at home. Take medications as directed Assessment: Pt has insight and demonstrates good judgment in terms of wanting to pursue treatment. Pt has a safety plan that includes presenting to the closest ER or calling 911 if feeling unsafe.
== END 2025-01-10 09:47 | disposition home or self-care (01) | DRG 751 ==
LOC: HO.ED 01-07 07:39 → HO.PM5 01-07 13:00
PROVIDERS: Emergency Medicine; Nurse Practitioner Family; Admitting Provider Clinical Nurse Specialist Psychiatric/Mental Health, Adult; Emergency Provider Emergency Medicine Emergency Medical Services; Visit Provider Clinical Nurse Specialist Psychiatric/Mental Health, Adult
DX: F29 Unspecified psychosis not due to a substance or known physiological condition (principal); F17.210 Nicotine dependence, cigarettes, uncomplicated; F19.94 Other psychoactive substance use, unspecified with psychoactive substance-induced mood disorder; Z71.6 Tobacco abuse counseling; Z79.899 Other long term (current) drug therapy
CPT/HCPCS: 36415; 80048; 80061; 80076; 80143; 80179; 80307; 81003; 82607; 82746; 83036; 83735; 84439; 84443; 85025; 93005; 99285; S9485

== ENCOUNTER → 2025-01-07 09:37 | Outpatient (BNV) | payer SELFPAY | PROVIDERS: Admitting Provider Clinical Nurse Specialist Psychiatric/Mental Health, Adult; Emergency Provider Emergency Medicine Emergency Medical Services; Visit Provider Internal Medicine Cardiovascular Disease | DX: Z13.6 Encounter for screening for cardiovascular disorders (principal) | CPT/HCPCS: 93010 ==

== ENCOUNTER → 2025-01-07 12:07 | Outpatient (BNV) | payer OTHER, SELFPAY | PROVIDERS: Admitting Provider Clinical Nurse Specialist Psychiatric/Mental Health, Adult; Emergency Provider Emergency Medicine Emergency Medical Services; Visit Provider Clinical Nurse Specialist Psychiatric/Mental Health, Adult | DX: F29 Unspecified psychosis not due to a substance or known physiological condition (principal); F19.94 Other psychoactive substance use, unspecified with psychoactive substance-induced mood disorder | CPT/HCPCS: 99232 ==